=== PATIENT | female | born 1995 | race Caucasian/White ===

== ENCOUNTER 2017-08-02 13:12 | Emergency (ER) | payer OTHER ==
[2017-08-02 14:18] VITALS: BP 113/54
--- NOTE | 2017-08-02 14:33 | UC ---
Shoulder Pain HPI - HPI Summary HPI Summary: 21 yo female started rugby practice 2 weeks ago since then has had right trapezius pain initially mild past to days the pain has increased state it feels like nerve pain-sharp and burning no change in pain with turn head or moving arm - History of Current Complaint Chief Complaint: UCUpperExtremity Stated Complaint: UPPER BACK/RT SHOULDER PAIN Time Seen by Provider: 08/02/17 14:32 Hx Obtained From: Patient Hx Last Menstrual Period: 07/27 Onset/Duration: Gradual Onset, Lasting Weeks Timing: Constant Severity Initially: Mild Severity Currently: Moderate Pain Intensity: 5 Pain Scale Used: 0-10 Numeric Character: Burning Aggravating Factor(s): Nothing Alleviating Factor(s): OTC Meds Associated Signs And Symptoms: Positive: Negative Related History: Dominant Hand Right - Allergies/Home Medications Allergies/Adverse Reactions: Allergies Allergy/AdvReac Type Severity Reaction Status Date / Time No Known Allergies Allergy Verified 08/02/17 14:09 Home Medications: Home Medications Ibuprofen TAB* [Motrin TAB* 600 MG] 600 mg PO Q6H PRN 08/02/17 [History Confirmed 08/02/17] PMH/Surg Hx/FS Hx/Imm Hx Previously Healthy: Yes - Surgical History Surgical History: None - Family History Known Family History: Positive: Hypertension - Social History Alcohol Use: Weekly Alcohol Amount: 10 Substance Use Type: None Smoking Status (MU): Never Smoked Tobacco Review of Systems Constitutional: Negative Skin: Negative Eyes: Negative ENT: Negative Respiratory: Negative Cardiovascular: Negative Gastrointestinal: Negative Genitourinary: Negative Motor: Negative Neurovascular: Negative Musculoskeletal: Myalgia Neurological: Negative Psychological: Negative Is Patient Immunocompromised?: No All Other Systems Reviewed And Are Negative: Yes Physical Exam Triage Information Reviewed: Yes Appearance: Well-Appearing, No Pain Distress, Well-Nourished Vital Signs: Initial Vital Signs Temp 98.9 F 08/02/17 14:11 Pulse 72 08/02/17 14:11 Resp 18 08/02/17 14:11 BP 113/54 08/02/17 14:11 Pulse Ox 100 08/02/17 14:11 Vital Signs Reviewed: Yes Eyes: Positive: Conjunctiva Clear ENT: Positive: Hearing grossly normal. Negative: Nasal drainage, TMs normal Neck: Positive: Supple, Nontender, No Lymphadenopathy, Other: - no midline cervical spine tenderness Respiratory: Positive: Lungs clear, Normal breath sounds, No respiratory distress, No accessory muscle use Cardiovascular: Positive: RRR, No Murmur, Pulses Normal Musculoskeletal: Positive: ROM Intact - both right shoulder and neck, No Edema Neurological: Positive: Alert Psychological Exam: Normal Skin Exam: Normal Shoulder Course/Dx - Differential Dx/Diagnosis Provider Diagnoses: right trapezius pain, strain vs other Discharge - Discharge Plan Condition: Stable Disposition: HOME Patient Education Materials: Shoulder Pain (ED) Referrals: Prasanna Gage MD [Medical Doctor] - As Soon As Possible Additional Instructions: activity as tolerated ice twice daily continue ibuprofen see orthopedist Images Head: 1 - pain here
== END 2017-08-02 14:49 | disposition home or self-care (01) ==
LOC: UCCORT 13:12
DX: M79.1 Myalgia (principal)
CPT/HCPCS: 99201; G0463